=== PATIENT | female | born 1995 | race Caucasian/White ===

== ENCOUNTER → 2017-01-28 | Outpatient (CLI) | payer OTHER ==
[~2017-01-28] MED LIST: ALBUTEROL0.09 MG/AC IH; AMOXICILLIN500 MG PO; ATIVAN1 MG PO; BACTROBAN CREAM15 GM T; BIRTH CONTROL1 EAC1 PO; CLEOCIN150 MG PO; COLACE100 MG PO; IRON325 M1 PO; KEFLEX500 MG PO; MOTRIN400 MG PO; MOTRIN600 MG PO; MOTRIN800 MG PO; NAPROSYN500 MG PO; PERCOCET 325 MG1 TA7; PRENATAL1 TA3 PO; PRENATAL1 TA5 PO; TRAMADOL HCL50 MG PO; TYLENOL325 M1 PO
== END | disposition home or self-care (01) ==
LOC: US 15:41
DX: E04.1 Nontoxic single thyroid nodule (principal)

== ENCOUNTER 2017-11-01 06:30 | Emergency (ER) | payer OTHER ==
[~2017-11-01] VITALS: Ht 160 cm; Wt 68.0 kg
[2017-11-01] MEDS ORDERED: ZITHROMAX250 MG PO (07:39)
[2017-11-01] MEDS ORDERED: VALTREX1000 MG PO (07:39)
== END 2017-11-01 07:43 | disposition home or self-care (01) ==
LOC: ED 06:30
DX: J06.9 Acute upper respiratory infection, unspecified (principal); B00.1 Herpesviral vesicular dermatitis; Z88.8 Allergy status to other drugs, medicaments and biological substances

== ENCOUNTER 2017-12-17 15:48 | Emergency (ER) | payer OTHER ==
[~2017-12-17] VITALS: Ht 160 cm; Wt 68.0 kg
[~2017-12-17 15:48] MED LIST changes: +VALTREX1000 MG PO; +ZITHROMAX250 MG PO
[2017-12-17] MEDS ORDERED: NAPROSYN500 MG PO (16:02)
[2017-12-17] MEDS ORDERED: CHLORZOXAZONE500 M2 PO (16:02)
== END 2017-12-17 18:32 | disposition home or self-care (01) ==
LOC: ED 15:48
DX: S13.8XXA Sprain of joints and ligaments of other parts of neck, initial encounter (principal); S60.212A Contusion of left wrist, initial encounter; S20.219A Contusion of unspecified front wall of thorax, initial encounter; Z90.89 Acquired absence of other organs; Z79.899 Other long term (current) drug therapy; Z88.6 Allergy status to analgesic agent; V49.88XA Car occupant (driver) (passenger) injured in other specified transport accidents, initial encounter; Y93.89 Activity, other specified; Y92.413 State road as the place of occurrence of the external cause; Y99.9 Unspecified external cause status

== ENCOUNTER → 2017-12-24 | Outpatient (CLI) | payer OTHER ==
[~2017-12-24] MED LIST changes: +CHLORZOXAZONE500 M2 PO
== END | disposition home or self-care (01) ==
LOC: RAD 15:26
DX: M25.561 Pain in right knee (principal); M25.461 Effusion, right knee; V89.2XXD Person injured in unspecified motor-vehicle accident, traffic, subsequent encounter; X58.XXXD Exposure to other specified factors, subsequent encounter

== ENCOUNTER → 2018-01-01 | Outpatient (CLI) | payer OTHER | END | disposition home or self-care (01) | LOC: MRI 10:47 | DX: Z09 Encounter for follow-up examination after completed treatment for conditions other than malignant neoplasm (principal); M25.532 Pain in left wrist; M79.89 Other specified soft tissue disorders; V89.2XXD Person injured in unspecified motor-vehicle accident, traffic, subsequent encounter ==

== ENCOUNTER 2018-12-31 07:00 | Emergency (ER) | payer OTHER ==
[~2018-12-31] VITALS: Ht 160 cm; Wt 59.4 kg
[2019-01-01 07:06] LABS: HEPATITIS B SURFACE AB 006395 Non Reactive (.); HEPATITIS C AB 0.2 (0.0-0.9)
== END 2018-12-31 08:07 | disposition home or self-care (01) ==
LOC: ED 07:00
PROVIDERS: Emergency Medicine
DX: S61.032A Puncture wound without foreign body of left thumb without damage to nail, initial encounter (principal); Z90.89 Acquired absence of other organs; Z88.6 Allergy status to analgesic agent; W46.1XXA Contact with contaminated hypodermic needle, initial encounter; Y93.89 Activity, other specified; Y92.69 Other specified industrial and construction area as the place of occurrence of the external cause; Y99.9 Unspecified external cause status

== ENCOUNTER → 2020-04-07 | Outpatient (CLI) | payer SELFPAY ==
[2020-04-07 11:34] LABS: HEMATOCRIT 37.6 % (37.0-47.0); MEAN CELL VOLUME 92.2 fl (81.0-99.0); MEAN CORPUSCULAR HGB 31.1 pg (27.0-31.0); MEAN CORPUSCULAR HGB CONC 33.8 g/dl (33.0-37.0); MEAN PLATELET VOLUME 9.2 fl (9.6-12.3); RED BLOOD COUNT 4.08 10*6/uL (4.10-5.10); RED CELL DISTRI WIDTH 12.6 % (0-14.5); WHITE BLOOD COUNT 5.1 10*3/uL (4.8-10.8)
[2020-04-07 12:11] LABS: ALBUMIN 3.9 gm/dl (3.1-4.5); ALKALINE PHOSPHATASE 50 U/L (45-117); BUN 12 mg/dl (7-24); CHLORIDE 109 mmol/L (98-107); CHOLESTEROL 148 mg/dL (<200); CREATININE 0.89 mg/dL (0.55-1.02); HDL CHOLESTEROL 52 mg/dl (40-60); LDL CHOLESTEROL 87 mg/dL (9-159); POTASSIUM 3.7 mmol/L (3.5-5.1); SGOT/AST 15 IU/L (3-35); SGPT/ALT 21 U/L (12-78); SODIUM 140 mmol/L (136-145); TOTAL PROTEIN 7.7 gm/dL (6.4-8.2); TRIGLYCERIDES 47 mg/dl (<150); VLDL CHOLESTEROL 9 mg/dL (6-40)
[2020-04-07 12:17] LABS: THYROID STIM HORMONE (HS) 0.934 uIU/ml (0.358-4.75)
== END | disposition home or self-care (01) ==
LOC: LAB 10:56
PROVIDERS: Family Medicine
DX: Z13.220 Encounter for screening for lipoid disorders (principal); F41.1 Generalized anxiety disorder; E74.00 Glycogen storage disease, unspecified; E55.9 Vitamin D deficiency, unspecified; R53.83 Other fatigue

== ENCOUNTER → 2021-07-24 | Outpatient (CLI) | payer OTHER | END | disposition home or self-care (01) | LOC: RESCLI 11:06 | PROVIDERS: ATTEND Internal Medicine | DX: Z02.1 Encounter for pre-employment examination (principal); E04.2 Nontoxic multinodular goiter; Z79.899 Other long term (current) drug therapy; Z98.890 Other specified postprocedural states ==

== ENCOUNTER → 2021-12-31 | Outpatient (CLI) | payer OTHER | END | disposition home or self-care (01) | LOC: US 15:37 | PROVIDERS: ATTEND Nurse Practitioner Women's Health | DX: N88.8 Other specified noninflammatory disorders of cervix uteri (principal); N93.0 Postcoital and contact bleeding ==